=== PATIENT | female | born 1985 | race American Indian/Alaskan Native ===

== ENCOUNTER 2021-09-10 15:21 | Emergency (ER) | payer OTHER ==
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
[2021-09-10 17:55] VITALS: BP 125/76
[2021-09-10 19:42] LABS: HCG Qualitative,Urine Negative (Negative)
--- NOTE | 2021-09-10 20:26 | XRay Report ---
Lumbar spine 3 views INDICATION: Low back pain following injury IMPRESSION: No fracture or subluxation of the lumbar spine identified. Signer Name: Mark Burdick MD Signed: 09/10/2021 8:21 PM Workstation Name: [email or web address]
--- NOTE | 2021-09-10 20:28 | XRay Report ---
Chest with rib series 5 views INDICATION: Left-sided chest pain following injury IMPRESSION: The lungs are clear. No pneumothorax or pleural effusion. No displaced left-sided rib fra cture is identified. Signer Name: Mark Burdick MD Signed: 09/10/2021 8:23 PM Workstation Name: [email or web address]
== END 2021-09-10 21:48 | disposition home or self-care (01) ==
LOC: ED 15:21
DX: S33.5XXA Sprain of ligaments of lumbar spine, initial encounter (principal); R07.89 Other chest pain; Z79.899 Other long term (current) drug therapy; V89.2XXA Person injured in unspecified motor-vehicle accident, traffic, initial encounter; Y93.89 Activity, other specified; Y92.488 Other paved roadways as the place of occurrence of the external cause; Y99.8 Other external cause status
CPT/HCPCS: 72100; 81025; 99284